=== PATIENT | female | born 1970 | race Caucasian/White ===

== ENCOUNTER → 2016-07-06 | Outpatient (CLI) | payer OTHER ==
[~2016-07-06] MED LIST: CITA20TA9 PO
[2016-07-15 18:18] LABS: HERPES SIMPLEX CULT SOURCE OTHER-LEFT EYE; HERPES SIMPLEX VIRUS CULT NOT ISOLATED (NOT ISOLATED); V-ZOSTER CULT NOT ISOLATED
== END | disposition home or self-care (01) ==
LOC: C.LABSPEC 09:49
PROVIDERS: ATTEND Ophthalmology
DX: B00.9 Herpesviral infection, unspecified (principal)

== ENCOUNTER → 2017-03-29 | Outpatient (CLI) | payer OTHER, BC ==
[~2017-03-29] MED LIST changes: +NORE0.352 PO; +PRD/1 PO
--- NOTE | 2017-03-29 08:58 | DIAGNOSTIC IMAGING REPORT ---
L LOWER EXT JOINT WITHOUT CLINICAL HISTORY: 46 years-old Female presenting with PERSISTENT PAIN S/P WORK INJURY TO LT ANKLE, lateral left ankle pain after injury in December, tender to palpation. TECHNIQUE: Multisequence, multiplanar MR imaging of the left ankle was performed without the use of intravenous contrast. IV contrast: None. COMPARISON: Plain radiographs of the left ankle from 01/22/2017. FINDINGS: Localizer images: Unremarkable. No bony edema. Mild diffuse articular cartilage thinning suggested at the ankle mortise without evidence of focal injury. Anterior, posterior, and peroneal tendons intact. Trace fluid within the tendon sheaths of the tibialis posterior and tibialis anterior. Posterior inferior tibiofibular ligament intact. Increased signal intensity and thickening of the anterior inferior tibiofibular ligament. Anterior and posterior talofibular ligaments intact. Calcaneofibular ligament intact. Deltoid ligament intact. Superficial edema noted at the origin of the medial band of the plantar fascia, however, the fascia remains intact and normal in signal intensity without evidence of thickening. No infiltration of the sinus tarsi. Normal appearance of the tarsal tunnel. Small ankle joint effusion. Trace fluid at the insertion of the Achilles tendon, without evidence of tendon thickening or significant infiltration of Dimitry fat pad. IMPRESSION: 1. Concern for injury of the anterior inferior tibiofibular ligament. 2. Small joint effusion. 3. Trace fluid at the insertion of the Achilles tendon without convincing evidence of retrocalcaneal bursitis or Achilles tendinosis. 4. Trace superficial edema at the medial band of plantar fascia of the fascia remains intact and normal in signal intensity. Electronically signed by: Maurilio Camarillo M.D. 03/29/2017 8:57 AM Dictated Date/Time: 03/29/2017 8:43 AM
== END | disposition home or self-care (01) ==
LOC: C.MRI 07:47
PROVIDERS: ATTEND Nurse Practitioner Family
DX: S99.912A Unspecified injury of left ankle, initial encounter (principal); R93.7 Abnormal findings on diagnostic imaging of other parts of musculoskeletal system; X58.XXXA Exposure to other specified factors, initial encounter; Y99.0 Civilian activity done for income or pay

== ENCOUNTER 2020-07-27 11:27 | Observation (INO) ==
[2020-07-27 11:49] LABS: Basophils # (auto) 0.02 K/uL (0-0.2); Basophils % (auto) 0.2 %; Eosinophils # (auto) 0.07 K/uL (0-0.5); Eosinophils % (auto) 0.7 %; Hematocrit (blood only) 44.6 % (37-47); Hemoglobin 15.2 g/dL (12.0-16.0); Immature Granulocytes # (auto) 0.03 K/uL (0.00-0.02); Immature Granulocytes % (auto) 0.3 %; Lymphocytes # (auto) 3.24 K/uL (1.2-3.4); Lymphocytes % (auto) 30.2 %; Mean Corpuscular Hemoglobin 31.3 pg (25-34); Mean Corpuscular Hgb Conc 34.1 g/dL (32-36); Mean Platelet Volume 8.5 fL (7.4-10.4); Monocytes # (auto) 1.09 K/uL (0.11-0.59); Monocytes % (auto) 10.2 %; Neutrophils # (auto) 6.28 K/uL (1.4-6.5); Neutrophils % (auto) 58.4 %; Platelet Count 281 K/uL (130-400); RDW Coefficient of Variation 13.4 % (11.5-14.5); RDW Standard Deviation 44.9 fL (36.4-46.3); Red Blood Count 4.85 M/uL (4.2-5.4); White Blood Count 10.73 K/uL (4.8-10.8)
[2020-07-27 12:01] LABS: INR 0.9 (0.9-1.1); Partial Thromboplastin Time 26.7 Seconds (21.0-31.0); Prothrombin Time 9.6 Seconds (9.0-12.0)
--- NOTE | 2020-07-27 12:15 | XRay Report ---
XR chest 1V portable CLINICAL HISTORY: Chest Pain COMPARISON STUDY: Chest radiograph and chest CT September 24, 2017. FINDINGS: Lung volumes are normal. Lungs are clear. There is no pneumothorax or pleural effusion. Car diac size is normal. Mediastinal contours are normal. There is no evidence for pulmonary edema. IMPRESSION: No acute cardiopulmonary findings. ACT 112: Negative or not required by law. Electronically signed by: Eligio De La Paz M.D. 07/27/2020 12:13 PM
[2020-07-27 12:17] LABS: Alanine Aminotransferase 28 U/L (12-78); Aspartate Aminotransferase 26 U/L (15-37); BUN Creatinine Ratio 16.1 (10-20); Blood Urea Nitrogen 13 mg/dl (7-18); Calcium 9.5 mg/dl (8.5-10.1); Carbon Dioxide 28 mmol/L (21-32); Chloride 108 mmol/L (98-107); Creatinine Clr Calc Pharmacy 97.9 ml/min; Est GFR (African American) 102.7; Est GFR (Non-African American) 88.6; Glucose 71 mg/dl (70-99); Potassium 3.9 mmol/L (3.5-5.1); Sodium 140 mmol/L (136-145)
[2020-07-27 12:22] LABS: Alkaline Phosphatase 126 U/L (45-117); Bilirubin,Total 0.8 mg/dl (0.2-1); Globulin 4.1 gm/dl (2.5-4.0); Total Protein 8.1 gm/dl (6.4-8.2); Troponin I < 0.015 ng/ml (0-0.045)
[2020-07-27] MEDS ORDERED: NITROGLYCERIN SL 0.4 MG/TAB TAB SL STA (13:12)
[2020-07-27 13:22] LABS: D Dimer 340 ug/L FEU (0-500)
[2020-07-27] MEDS ORDERED: MoRPHine SULFATE 4 MG/ML 1 ML CARP\\VIAL IV STA (14:17)
--- NOTE | 2020-07-27 15:28 | Emergency Department Note ---
Impression & Plan Chest pain ED Provider Note INFORMANT: Patient ED PROVIDER(S): uJan Guthrie MD CHIEF COMPLAINT: Chest pain PLAN: Disposition: Admitted Condition: Good Outpatient prescription management: none Referral: None MEDICAL DECISION MAKING: Patient presented to emerge department complaining of chest pain. She did have some change with nitroglycerin. ECGs did not reveal any acute change. Repeat ECG with change in her pain did not reveal any obvious ischemic change either. Her D-dimer and troponin were negative. Chemistry panel was unremarkable. LFTs and lipase were negative. The patient had a negative chest x-ray. She had pain radiating into the left arm. She was given a dose of IV morphine. I discussed treatment in the hospital for a cardiac work-up. Patient was in agreement. Consultation was made with [facility], Dr. Iniguez. Triage Nursing notes reviewed and agree them. Vital Signs: reviewed and remarkable for no significant abnormalities Differential diagnosis: Cardiac ischemia, aortic dissection, pulmonary embolism, pneumothorax, pneumonia, pericarditis, myocarditis, esophageal rupture, GERD, cholecystitis, pancreatitis, musculoskeletal, as well as other pathologies. Diagnostics interpreted by me: ECG #1: Rate: 78 Rhythm:Normal sinus [place]:Normal QRS:Normal ST segements:No elevation or depression Other:No PACs or PVCs ECG #2: Rate: 80 Rhythm:Normal sinus [place]:Normal QRS:Normal ST segements:No elevation or depression Other:No PACs or PVCs Cardiac Monitoring:Cardiac monitoring ordered by me: The patient was placed on continuous cardiac monitoring and observed. It revealed a normal sinus rhythm at 83 beats per minute without ectopy or evidence of dysrhythmia. Imaging studies: Chest x-ray. Findings: A chest x-ray was performed and revealed no pneumothorax, effusion, infiltrate, pulmonary edema, free air under the diaphragm, or wide mediastinum. Impression: No acute disease. HPI: The patient is a 49 year old female who presents to the Emergency Room with complaints of chest pain. This started about 1030 and is radiating to her neck and jaw. She also notes some radiation to her arms. The patient also notes the following associated symptoms, none. The patient has been given aspirin and 2 nitro for relieving factors. Current pain is rated as 2/10. Pain was a 6 out of 10. Pt denies LOC, headache, fevers, chills, diaphoresis, visual changes, neck pain, breathing difficulties, nausea, vomiting, abdominal pain, back pain, melena, hematochezia, urinary symptoms, numbness, weakness, lymphadenopathy, rash, or other complaints. ROS: See above HPI for pertinent positives & negatives. A total of 10 systems reviewed and were otherwise negative. PAST MEDICAL HISTORY:See Below , patient denies PAST SURGICAL HISTORY:See Below, patient denies FAMILY HISTORY:See Below SOCIAL HISTORY:See Below, non-smoker HOME MEDICATIONS:See Below ALLERGIES:See Below VITALS:See Below PHYSICAL EXAMINATION: GENERAL: Awake, alert, well-appearing, in no distress HENT: Normocephalic, atraumatic. Oropharynx unremarkable. EYES: Normal conjunctiva. Sclera non-icteric. NECK: Inspection normal. Non-tender. Supple. No nuchal rigidity. FROM. No masses. RESPIRATORY: Clear to auscultation. No wheezes. No rales. Normal respiratory effort. CARDIAC: Normal rate. Normal rhythm. No murmurs. No rubs. Extremities warm and well perfused. Pulses equal. No JVD. GI: Soft, non-distended. No tenderness to palpation. No rebound or guarding. No masses. RECTAL: Deferred. MUSCULOSKELETAL: Atraumatic. Chest examination reveals no tenderness. The back is symmetrical on inspection without obvious abnormality. There is no CVA tenderness to palpation. No joint edema. LOWER EXTREMITIES: Calves are equal size bilaterally and non-tender. No edema. No discoloration. NEURO: Normal sensorium. No sensory or motor deficits noted. SKIN: No rash or jaundice noted. Juan Guthrie MD Past Med/Surg History Social History Smoking Status: Never smoker Feels Safe at Home: Yes Allergies Allergies Allergy/AdvReac Type Severity Reaction Status Date / Time apple Allergy Severe throat Verified 11/03/13 13:01 swelling watermelon Allergy Severe throat Verified 11/03/13 13:01 swelling Cantaloupe Allergy Severe throat Uncoded 11/03/13 13:01 swelling IVIG Allergy Unknown migraine Uncoded 09/24/17 21:41 headache and rash Home Meds Home Medications Medication Instructions Recorded Confirmed CITALOPRAM HYDROBROMIDE (CELEXA) 20 mg PO DAILY #0 tab 12/06/13 NORETHINDRONE (CONTRACEPTIVE) 0.35 mg PO DAILY #0 09/24/17 (GERMAN-BE) Prednisone (PREDNISONE) 0.5 mg PO DAILY #0 tab 09/24/17 Results & Data (ED) Vital Signs Vital Signs - 24 hr 07/27/20 11:31 07/27/20 11:33 07/27/20 11:34 Temperature 37.1 C Temperature Source Oral Pulse Rate 81 86 86 Pulse Rate from SpO2 Sensor 84 81 Respiratory Rate 19 22 20 Respiratory Effort / Characteristics Non-Labored Spontaneous Respiratory Depth Normal Blood Pressure 141/91 H 141/91 H Blood Pressure Mean 107 107 Pulse Oximetry 97 96 97 Oxygen Delivery Method Room Air Sepsis Recent Fever Within 48 Hours No Sepsis New/Unexplained Change in Mental Status N/A Sepsis Action Taken by Nursing No Action Required 07/27/20 12:30 07/27/20 13:00 07/27/20 13:30 Temperature Temperature Source Pulse Rate 82 75 76 Pulse Rate from SpO2 Sensor 82 75 76 Respiratory Rate 18 18 18 Respiratory Effort / Characteristics Respiratory Depth Blood Pressure 133/94 135/86 138/87 Blood Pressure Mean 107 102 104 Pulse Oximetry 97 97 97 Oxygen Delivery Method Sepsis Recent Fever Within 48 Hours Sepsis New/Unexplained Change in Mental Status Sepsis Action Taken by Nursing 07/27/20 13:45 Temperature Temperature Source Pulse Rate 83 Pulse Rate from SpO2 Sensor 81 Respiratory Rate 18 Respiratory Effort / Characteristics Respiratory Depth Blood Pressure 118/82 Blood Pressure Mean 94 Pulse Oximetry 95 Oxygen Delivery Method Sepsis Recent Fever Within 48 Hours Sepsis New/Unexplained Change in Mental Status Sepsis Action Taken by Nursing Laboratory Data Result diagrams: 07/27/20 11:10 07/27/20 11:10 Lab Results 07/27/20 07/27/20 07/27/20 Range/Units 11:10 11:10 11:10 WBC 10.73 (4.8-10.8) K/uL RBC 4.85 (4.2-5.4) M/uL Hgb 15.2 (12.0-16.0) g/dL Hct 44.6 (37-47) % MCV 92.0 (80-100) fL MCH 31.3 (25-34) pg MCHC 34.1 (32-36) g/dL RDW Std Deviation 44.9 (36.4-46.3) fL RDW Coeff of [place] 13.4 (11.5-14.5) % Plt Count 281 (130-400) K/uL MPV 8.5 (7.4-10.4) fL Immature Gran % (Auto) 0.3 % Neut % (Auto) 58.4 % Lymph % (Auto) 30.2 % [place] % (Auto) 10.2 % Eos % (Auto) 0.7 % Baso % (Auto) 0.2 % Neut # (Auto) 6.28 (1.4-6.5) K/uL Lymph # (Auto) 3.24 (1.2-3.4) K/uL [place] # (Auto) 1.09 H (0.11-0.59) K/uL Eos # (Auto) 0.07 (0-0.5) K/uL Baso # (Auto) 0.02 (0-0.2) K/uL Immature Gran # (Auto) 0.03 H (0.00-0.02) K/uL PT 9.6 (9.0-12.0) Seconds INR 0.9 (0.9-1.1) APTT 26.7 (21.0-31.0) Seconds PTT Ratio 1.0 D-Dimer 340 (0-500) ug/L FEU Sodium 140 (136-145) mmol/L Potassium 3.9 (3.5-5.1) mmol/L Chloride 108 H (98-107) mmol/L Carbon Dioxide 28 (21-32) mmol/L Anion Gap 4.0 (3-11) BUN 13 (7-18) mg/dl Creatinine 0.78 (0.6-1.2) mg/dl Est Cr Clr Drug Dosing 97.9 ml/min Est GFR ( Amer) 102.7 Est GFR (Non-Af Amer) 88.6 BUN/Creatinine Ratio 16.1 (10-20) Glucose 71 (70-99) mg/dl Calcium 9.5 (8.5-10.1) mg/dl Total Bilirubin 0.8 (0.2-1) mg/dl AST 26 (15-37) U/L ALT 28 (12-78) U/L Alkaline Phosphatase 126 H (45-117) U/L Troponin I < 0.015 (0-0.045) ng/ml Total Protein 8.1 (6.4-8.2) gm/dl Albumin 4.0 (3.4-5.0) gm/dl Globulin 4.1 H (2.5-4.0) gm/dl Albumin/Globulin Ratio 1.0 (0.9-2) Administered Medications Discontinued Medications Morphine Sulfate (Morphine Sulfate 4 Mg/Ml 1 Ml Carp\Vial) 4 mg IV NOW STA Stop: 07/27/20 14:18 Last Admin: 07/27/20 15:02 Dose: 4 mg Documented by: [id number] Nitroglycerin (Nitroglycerin Sl 0.4 Mg/Tab Tab) 0.4 mg SL NOW STA Stop: 07/27/20 13:13 Last Admin: 07/27/20 13:40 Dose: 0.4 mg Documented by: [id number] Imaging Data Radiologist's Impression: Chest X-Ray 07/27/20 11:41 XR chest 1V portable CLINICAL HISTORY: Chest Pain COMPARISON STUDY: Chest radiograph and chest CT September 24, 2017. FINDINGS: Lung volumes are normal. Lungs are clear. There is no pneumothorax or pleural effusion. Cardiac size is normal. Mediastinal contours are normal. There is no evidence for pulmonary edema. IMPRESSION: No acute cardiopulmonary findings. ACT 112: Negative or not required by law. Electronically signed by: Eligio De La Paz M.D. 07/27/2020 12:13 PM Discharge Plan Visit Data Chief Complaint: Chest Pain ED Provider: Juan Guthrie Discharge Problem: Chest pain Forms Stand Alone Forms: My [facility]
--- NOTE | 2020-07-27 15:32 | History & Physical Report ---
Date of Service July 27, 2020 Assessment & Plan (1) Chest pain: - Admit to tele for observation for r/o - Trend cardiac biomarkers, initial set was negative - EKG reviewed as above - Check 2 D echo - If negative enzymes and chest pain free can consider a stress test tomorrow morning. - Lipid panel, A1C, and TSH for completeness - Continue asa 81 mg daily, start metoprolol 12.5 mg PO with first dose now then every morning, atorvastatin 10 mg daily - Nitropaste 1 in now, BP elevated at 150-170 systolic while at bedside - Cardiology consulted - Pt history/risk factors may warrant cardiac catheterization. Pt has seen Dr. Clarke in 2018, but at that time chest pain was rule as musculoskeletal. - HEART score of 4, moderate, risk of MACE is 12-16.6% (2) CIDP (chronic inflammatory demyelinating polyneuropathy): -History of such, on chronic prednisone 5 mg daily, continue -Follows with neurology as an outpatient routinely (3) Immunosuppression due to chronic steroid use: -May continue prednisone 5 mg daily as above (4) Anxiety and depression: - Cont citalopram 40 mg HS - Will order lorazepam 0.5 mg PO TID prn - pt appears to be more anxious here in the ER. (5) DVT prophylaxis: - teds, heparin subq CODE: Full code Dispo: From home, likely to remain in the hospital x 1-2 days History of Present Illness Primary Care Provider: Roosevelt Alcala MD This is a 49 yo F with PMHx of chronic inflammatory demyelinating polyneuropathy, on chronic immunosuppression, depression with anxiety, who presents with the acute onset of chest pain which started at 1030 this morning. 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 This then progressed into a chest heaviness and pressure sensation, radiating up into both sides of her neck and jaw. At that point she called medical personnel at her work who then contacted 911 and EMS brought her to the hospital. She was given 2 nitroglycerin sprays en route as well as full dose aspirin. She did not seem to have significant improvement in her chest pain at that point. Here in the ER patient EKG was reviewed without acute ST wave changes or signs of ischemia, negative troponin. She had worsening of chest pain which then radiated down into the left arm with associated numbness while in the ER, and was given dose of morphine along with a nitroglycerine tablet, which did improve her pain slightly. She still has some chest pain during my visit. Denies lightheadedness or dizziness, no nausea or vomiting or headache. Of note, the patient has a history of chest pain in 2018. At that time she was noted to have been lifting heavy boxes, and doing large amounts of physical activity. It was determined that this was musculoskeletal chest pain and not cardiogenic. She had followed up with Dr. Clarke, cardiology, as outpatient. This pain described above is not like previous musculoskeletal pain in nature. Family history: Paternal aunt with CAD and triple bypass at age 60, at age 80 from other causes Social history: No history of tobacco use or smoking No alcohol use Allergies Allergy/AdvReac Type Severity Reaction Status Date / Time apple Allergy Severe throat Verified 07/27/20 15:32 swelling watermelon Allergy Severe throat Verified 07/27/20 15:32 swelling Cantaloupe Allergy Severe throat Uncoded 07/27/20 15:32 swelling IVIG Allergy Unknown migraine Uncoded 07/27/20 15:32 headache and rash Home Medications Medication Instructions Recorded Confirmed Type Otc Allergy Tab 1 tab PO DAILY 07/27/20 07/27/20 History citalopram 40 mg PO HS 07/27/20 07/27/20 History prednisone 5 mg PO HS 07/27/20 07/27/20 History atorvastatin 10 mg PO QAM #30 tab 07/29/20 Rx famotidine [Pepcid AC] 10 mg PO BID #0 tab 07/29/20 07/27/20 Rx Past Med/Surg History Social History Smoking Status: Never smoker Second Hand Exposure: No; Hx Alcohol Use: Yes Alcohol type: beer Hx Substance Use: No Preferred Language: Cuban Communication Ability: Effective Pharmacy Resource Tech Required: No Beliefs That Will Affect Care: None Current Living Situation: Spouse Feels Safe at Home: Yes Assistive Devices: None Review of Systems Review of Systems: Constitutional: No fever, sweats or chills Eyes: No diplopia, no worsening or blurred vision ENT: normal hearing, no trouble swallowing Respiratory: No cough, sputum, dyspnea at rest or on exertion Cardiovascular: + Chest pain as per HPI, + heaviness, +pressure, denies palpitations Abdomen: No pain, nausea, vomiting, diarrhea or constipation Musculoskeletal: No joint pain, calf pain, swelling Neurologic: No weakness, numbness/tingling, or balance problems Psychiatric: No anxiety or depression Skin: No rash or itch Physical Exam Physical Exam: General: awake, alert, no apparent distress, obese with BMI 34.5 Head: Normocephalic, atraumatic ENT: PERRL, EOMI, no pharyngeal exudate, mucous membranes moist Chest: Clear to auscultation, on room air, no adventitious breath sounds Cardiac: Regular rate and rhythm, no murmur, no JVD, normal peripheral pulses, good capillary refill, chest pain not reproducible on exam Abdominal: NABS x 4 quadrants, soft, nondistended, nontender to palpation, no rebound or guarding Extremities: Normal inspection, no peripheral edema or erythema, calfs nontender to palpation Psych: Normal mood and affect Neuro: AAO x 3, strength intact bilaterally and rated 5/5, no motor deficits, speech is clear, no peripheral sensory deficits Results & Data Results & Data ([facility]) Vital Signs (Past 12 Hours) Vital Signs Temp Pulse Resp BP Pulse Ox 07/27/20 13:45 83 18 118/82 95 07/27/20 13:30 76 18 138/87 97 07/27/20 13:00 75 18 135/86 97 07/27/20 12:30 82 18 133/94 97 07/27/20 11:34 37.1 C 86 20 141/91 H 97 07/27/20 11:33 86 22 96 07/27/20 11:31 81 19 141/91 H 97 Diagnostic Findings Chest X-Ray 07/27/20 11:41 XR chest 1V portable CLINICAL HISTORY: Chest Pain COMPARISON STUDY: Chest radiograph and chest CT September 24, 2017. FINDINGS: Lung volumes are normal. Lungs are clear. There is no pneumothorax or pleural effusion. Cardiac size is normal. Mediastinal contours are normal. There is no evidence for pulmonary edema. IMPRESSION: No acute cardiopulmonary findings. ACT 112: Negative or not required by law. Electronically signed by: Eligio De La Paz M.D. 07/27/2020 12:13 PM ECG Indication: chest pain Rhythm: sinus rhythm Findings: no ST depression, no ST elevation and no acute ischemic change Additional Comments: 27-JUL-2020 11:41:48 [facility]-EDSTAT ROUTINE RETRIEVAL Normal sinus rhythm Normal ECG When compared with ECG of 26-SEP-2017 06:31, No significant change was found 25mm/s 10mm/mV 150Hz 9.0.9 12SL 241 IFEANYI: 10 Referred by: ED Unconfirmed Vent. rate 78 BPM ND interval 138 ms QRS duration 78 ms QT/QTc 380/433 ms Code Status & VTE Plan Code Status Full code- discussed with the patient at bedside Supervising Physician Co-Signing Physician Notes Attending addendum : pt seen and examined , care co-ordinated with Marnie SAAB 49 yo F presented to ER with symptoms of unstable angina , retrosternal chest discomfort with radiation to arm and jaw and neck received SL nitro , chest discomfort mildly improved EKG no ST-T wave changes Physical EXAM : Physical exam: General: No acute distress, alert awake oriented x3 HEENT: PERRLA, EOMI, Heart: Regular S1-S2, no carotid bruit, no JVD, no lower extremity edema Lungs: Clear to auscultate, no wheeze or rales Abdomen: Soft nontender, no organomegaly Extremity: No cyanosis, no deformity, normal strength 5 out of 5 with upper and lower Neuro: No focal neurological deficit normal speech, normal visual field, Motor strength : normal both upper and lower extremity, sensation intact Psych: Alert awake oriented x3, normal affect A/P : chest pain /symptoms suggestive of Unstable angina : ordered for nitro paste ( pt reports of ongoing chest discomfort ) resting ECHO , serial cardiac markers , cardiology eval will order for NPO past midnight possible stress test vs cardiac cath ( if pt continues to have angina symptoms ) Farhana Iniguez MD
[2020-07-27] MEDS ORDERED: NITROGLYCERIN 2% OINTMENT 30GM TUBE EXT SCH (15:55)
[2020-07-27] MEDS ORDERED: ACETAMINOPHEN 325 MG TAB PO PRN (16:05)
[2020-07-27] MEDS ORDERED: LORazepam 0.5 MG TAB PO PRN (16:05)
--- NOTE | 2020-07-27 16:41 | Electrocardiogram Report ---
Test Reason : Blood Pressure : / mmHG Vent. Rate : 078 BPM Atrial Rate : 078 BPM P-R Int : 138 ms QRS Dur : 078 ms QT Int : 380 ms P-R-T Axes : 056 024 013 degrees QTc Int : 433 ms Normal sinus rhythm Normal ECG When compared with ECG of 26-SEP-2017 06:31, No significant change was found Confirmed by Roosevelt Zee ([id number]) on 07/27/2020 4:40:37 PM Referred By: ED Confirmed By:Roosevelt Zee
[2020-07-27] MEDS ORDERED: ACETAMINOPHEN 500 MG TAB ONE (16:49)
[2020-07-27] MEDS: METOPROLOL TARTRATE 25 MG TAB PO SCH (16:53)
[2020-07-27] MEDS: NITROGLYCERIN 2% OINTMENT 30GM TUBE EXT SCH ×2 (16:53→20:57)
[2020-07-27 17:05] LABS: Influenza A virus by PCR Negative (Neg); Influenza B virus by PCR Negative (Neg); RSV by PCR Negative (Neg); SARS CoV2 RNA(COVID-19) InHosp NEGATIVE (Negative)
[2020-07-27] MEDS ORDERED: ONDANSETRON INJ 2 MG/ML 2 ML VIAL IV PRN (19:50)
[2020-07-27] MEDS: CITALOPRAM 40 MG TAB PO SCH (20:56)
[2020-07-27] MEDS: predniSONE 5 MG TAB PO SCH (20:57)
[2020-07-27] MEDS ORDERED: FAMOTIDINE 10 MG TABLET PO SCH (21:00)
[2020-07-27] MEDS: HEPARIN SOD 5,000 UNIT/0.5 ML VIAL SQ SCH (21:00)
[2020-07-28] MEDS: NITROGLYCERIN 2% OINTMENT 30GM TUBE EXT SCH ×4 (04:30→21:32)
[2020-07-28 04:34] LABS: Hematocrit (blood only) 38.7 % (37-47); Hemoglobin 13.1 g/dL (12.0-16.0); Mean Corpuscular Hemoglobin 31.3 pg (25-34); Mean Corpuscular Hgb Conc 33.9 g/dL (32-36); Mean Corpuscular Volume 92.6 fL (80-100); Mean Platelet Volume 8.3 fL (7.4-10.4); Platelet Count 265 K/uL (130-400); RDW Coefficient of Variation 13.6 % (11.5-14.5); RDW Standard Deviation 45.9 fL (36.4-46.3); Red Blood Count 4.18 M/uL (4.2-5.4); White Blood Count 7.09 K/uL (4.8-10.8)
[2020-07-28 04:53] LABS: Alanine Aminotransferase 23 U/L (12-78); Aspartate Aminotransferase 17 U/L (15-37); BUN Creatinine Ratio 20.1 (10-20); Blood Urea Nitrogen 14 mg/dl (7-18); Calcium 8.1 mg/dl (8.5-10.1); Carbon Dioxide 30 mmol/L (21-32); Chloride 111 mmol/L (98-107); Creatinine Clr Calc Pharmacy 106.1 ml/min; Est GFR (African American) 117.1; Glucose 93 mg/dl (70-99); Magnesium 2.4 mg/dl (1.8-2.4); Potassium 4.6 mmol/L (3.5-5.1); Sodium 142 mmol/L (136-145)
[2020-07-28 05:04] LABS: Albumin Globulin Ratio 0.9 (0.9-2); Alkaline Phosphatase 100 U/L (45-117); Bilirubin,Total 0.8 mg/dl (0.2-1); Chol HDL Ratio 5; Cholesterol 215 mg/dl (0-200); Globulin 3.3 gm/dl (2.5-4.0); HDL Cholesterol 40 mg/dl; LDL Cholesterol Calculated 145 mg/dl; Thyroid Stimulating Hormone 0.531 uIu/ml (0.300-4.500); Total Protein 6.3 gm/dl (6.4-8.2); Triglycerides 149 mg/dl (0-150); Troponin I < 0.015 ng/ml (0-0.045); VLDL Cholesterol 30 mg/dl
[2020-07-28 05:40] LABS: Estimated Average Glucose 108 mg/dl; Hemoglobin A1C 5.4 % (4.5-5.6)
[2020-07-28] MEDS: ACETAMINOPHEN 500 MG TAB PO PRN ×3 (07:20→19:48)
[2020-07-28] MEDS: HEPARIN SOD 5,000 UNIT/0.5 ML VIAL SQ SCH ×2 (08:18→19:49)
[2020-07-28] MEDS: METOPROLOL TARTRATE 25 MG TAB PO SCH (08:18)
[2020-07-28] MEDS ORDERED: ASPIRIN 81 MG ECTAB PO SCH (09:00)
[2020-07-28] MEDS ORDERED: ATORVASTATIN 10 MG TAB PO SCH (09:00)
[2020-07-28] MEDS ORDERED: SODIUM CHLORIDE 0.9% 1000ML 1,000 ML IV SCH (09:45)
--- NOTE | 2020-07-28 10:32 | Cardiology Consultation ---
Date of Consultation July 28, 2020 Assessment & Plan (1) Chest pain: Serial EKG tracings and cardiac enzymes have been within normal limits. A D- dimer screen was negative. Patient does have a history of anxiety, but she notes that she did not feel stressed. She mowed her grass over the weekend and did not have symptoms at that time. She is very concerned with regards to her symptoms and her strong family history of heart disease. She did have a previous admission for chest discomfort in 2018. She underwent an exercise stress echocardiogram at that time completing 9 minutes on a David protocol. She states however that the symptoms that prompted her presentation yesterday are different than those for which she was assessed in 2018. She has ongoing mild vague chest discomfort. Given the description of her symptoms and her family history, I think the most prudent course of action is to proceed with invasive coronary angiography to definitively rule in or exclude the presence of obstructive coronary heart disease. Patient was agreeable to this approach. Resting echocardiogram has been ordered and is pending. Agree with current medications including aspirin, topical nitroglycerin, metoprolol tartrate 12.5 mg, atorvastatin 10 mg daily. Keep patient n.p.o. for now, to be reassessed by Dr. James for tentative cardiac catheterization later today. History of Present Illness Attending Physician: Sai Cruz MD History of Present Illness Danette Bose is a 49 year old female seen in cardiology consultation per the request of Lupe Cote PA-C of the [facility] service for the evaluation of chest discomfort. Patient states she was in her normal state of good health early yesterday am. 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 She describes the chest sensation of a pressure and gestures with her hands denoting a bandlike chest pressure across the top of her chest. She received nitroglycerin prehospital and since admission, with partial palliation of the discomfort. She still however notes some mild residual discomfort. EKG x2 yesterday revealed sinus rhythm without significant ST depression. Troponin I has been negative x3 thus far. PAST MEDICAL HISTORY chronic inflammatory demyelinating polyneuropathy, depression, and anxiety. She is on chronic prednisone therapy. A SARS-CoV-2 PCR screen was negative as obtained yesterday. FAMILY HISTORY: Mother is alive at the age of 75 with history of heart stents placed when she was in her 50s Father is alive the age of 78, no history of heart disease No history of heart disease in her siblings She has an aunt who underwent CABG in her 60s Allergies Allergy/AdvReac Type Severity Reaction Status Date / Time apple Allergy Severe throat Verified 07/27/20 15:32 swelling watermelon Allergy Severe throat Verified 07/27/20 15:32 swelling Cantaloupe Allergy Severe throat Uncoded 07/27/20 15:32 swelling IVIG Allergy Unknown migraine Uncoded 07/27/20 15:32 headache and rash Home Medications Medication Instructions Recorded Confirmed Type Otc Allergy Tab 1 tab PO DAILY 07/27/20 07/27/20 History citalopram 40 mg PO HS 07/27/20 07/27/20 History famotidine [Pepcid AC] 10 mg PO HS 07/27/20 07/27/20 History prednisone 5 mg PO HS 07/27/20 07/27/20 History Patient History Social History Smoking Status: Never smoker Second Hand Exposure: No; Do You Dip or Chew Tobacco: No; Tobacco Cessation Education Requested by Patient: No Hx Alcohol Use: Yes Alcohol type: beer Hx Substance Use: No Preferred Language: Gibraltarian Communication Ability: Effective Senior Coldfusion Developer Required: No Beliefs That Will Affect Care: None Current Living Situation: Spouse Other Information That Helps Us Care for You: No Feels Safe at Home: Yes Safety Concerns: Feels Safe At This Time Assistive Devices: None Review of Systems Review of Systems: All systems reviewed & are unremarkable except as noted in HPI & below Physical Exam Physical Exam: Temp Pulse Resp BP Pulse Ox 36.7 C 66 20 133/76 97 07/28/20 07:54 07/28/20 07:54 07/28/20 07:54 07/28/20 07:54 07/28/20 07:54 Constitutional: WD/WN, vitals as above Respiratory: normal respiratory effort, lungs clear to auscultation Cardiovascular: RRR, no murmur, no edema Gastrointestinal (Abdomen): normal bowel sounds, soft, nontender, no hepatosplenomegaly Neurologic: PERRL, EOMI, accommodation nl, no face palsy, no dysarthria Results & Data ([facility]) Vital Signs (Past 12 Hours) Vital Signs Temp Pulse Pulse Resp BP Pulse Ox Pulse Ox 07/28/20 07:54 36.7 C 66 20 133/76 97 07/28/20 04:22 36.9 C 77 16 111/69 96 07/28/20 00:00 95 07/27/20 23:59 82 07/27/20 23:39 36.6 C 70 16 95/59 L 97 Laboratory Results Cardiac Enzymes 07/27/20 07/27/20 07/28/20 Range/Units 11:10 20:08 04:17 AST 26 17 (15-37) U/L Troponin I < 0.015 < 0.015 < 0.015 (0-0.045) ng/ml Coagulation 07/27/20 Range/Units 11:10 PT 9.6 (9.0-12.0) Seconds APTT 26.7 (21.0-31.0) Seconds Lipids 07/28/20 Range/Units 04:17 Triglycerides 149 (0-150) mg/dl Cholesterol 215 H (0-200) mg/dl HDL Cholesterol 40 mg/dl Cholesterol/HDL Ratio 5 CBC 07/27/20 07/28/20 Range/Units 11:10 04:17 WBC 10.73 7.09 (4.8-10.8) K/uL RBC 4.85 4.18 L (4.2-5.4) M/uL Hgb 15.2 13.1 (12.0-16.0) g/dL Hct 44.6 38.7 (37-47) % Plt Count 281 265 (130-400) K/uL Neut # (Auto) 6.28 (1.4-6.5) K/uL Lymph # (Auto) 3.24 (1.2-3.4) K/uL Caroline # (Auto) 1.09 H (0.11-0.59) K/uL Eos # (Auto) 0.07 (0-0.5) K/uL Baso # (Auto) 0.02 (0-0.2) K/uL Comprehensive Metabolic Panel 07/27/20 07/28/20 Range/Units 11:10 04:17 Sodium 140 142 (136-145) mmol/L Potassium 3.9 4.6 D (3.5-5.1) mmol/L Chloride 108 H 111 H (98-107) mmol/L Carbon Dioxide 28 30 (21-32) mmol/L BUN 13 14 (7-18) mg/dl Creatinine 0.78 0.70 (0.6-1.2) mg/dl Glucose 71 93 (70-99) mg/dl Calcium 9.5 8.1 L (8.5-10.1) mg/dl AST 26 17 (15-37) U/L ALT 28 23 (12-78) U/L Alkaline Phosphatase 126 H 100 (45-117) U/L Total Protein 8.1 6.3 L D (6.4-8.2) gm/dl Albumin 4.0 3.0 L (3.4-5.0) gm/dl Intake and Output 07/27/20 07/28/20 07/28/20 22:59 06:59 14:59 Intake Total 440 / 440 0 / 440 Balance 440 / 440 0 / 440 Intake: Oral 440 / 440 0 / 440 Other: Weight 89.3 kg 89.3 kg Weight Measurement Method Standing Scale Standing Scale
--- NOTE | 2020-07-28 11:27 | Electrocardiogram Report ---
Test Reason : Blood Pressure : / mmHG Vent. Rate : 080 BPM Atrial Rate : 080 BPM P-R Int : 142 ms QRS Dur : 078 ms QT Int : 392 ms P-R-T Axes : 061 031 012 degrees QTc Int : 452 ms Normal sinus rhythm Normal ECG When compared with ECG of 27-JUL-2020 11:41, No significant change was found Confirmed by Jeyson Martino ([id number]) on 07/28/2020 11:27:21 AM Referred By: REFERRED SELF Confirmed By:Jeyson Martino
[2020-07-28] MEDS ORDERED: niCARdipine HCL INJ 2.5 MG/ML 10 ML AMP ONE (12:05)
[2020-07-28] MEDS ORDERED: HEPARIN (PORCINE) 1000 UNIT/ML 10 ML (CATH LAB USE ONLY) ONE (12:05)
[2020-07-28] MEDS ORDERED: MIDAZOLAM HCL 1 MG/ML 2ML VIAL ONE (12:06)
[2020-07-28] MEDS ORDERED: NITROGLYCERIN/D5W 100MCG/ML 20ML SYR ONE (12:06)
[2020-07-28] MEDS ORDERED: fentaNYL citrate 100 MCG/2 ML VIAL ONE (12:06)
--- NOTE | 2020-07-28 13:41 | Cardiac Catheterization ---
Date of Service July 28, 2020 Cardiac Cath Report Cardiac Cath Report Procedure: 1. Coronary angiography 2. Left heart catheterization History: This is a 49-year-old female admitted with angina and referred for cardiac catheterization. Procedure summary: After informed consent was obtained the patient was taken to the cardiac catheterization lab where she was prepped and draped in the usual manner for a right transradial approach. Unfortunately, after accessing the radial artery the guidewire would not advance and therefore this approach was abandoned and a right femoral approach utilized. Preformed 5 Belgian diagnostic catheters were utilized for the coronary angiograms. Following the procedure the patient was returned to her room in stable condition. ACC data: Start time 12:53 PM End time 1:23 PM Opening aortic pressure 122/89 Left ventricular pressure 136/14 Closing aortic pressure 124/92 Sedation 1 mg intravenous Versed IV fluid 70 cc normal saline Contrast 50 cc Visipaque Fluoroscopy time 3.7 minutes Radiation 821 mGy DAP 61.68Gy/cm Right dominant system AUC score 6 Coronary angiography: Selective injections of the left coronary artery revealed the left main trunk to be widely patent. The left circumflex artery consist of a medium sized first and a small second marginal branch. The left circumflex artery is widely patent. The LAD extends to the apex of the heart. LAD gives off a single large first diagonal branch. The LAD system is widely patent. Injections into the right coronary artery reveal it to be dominant. Right coronary artery is widely patent. Summary: Widely patent coronary anatomy Recommendations: Continued risk factor modification.
[2020-07-28] MEDS: FAMOTIDINE 10 MG TABLET PO SCH ×2 (15:12→19:49)
--- NOTE | 2020-07-28 16:17 | Hospitalist Progress Note ---
Date of Service July 28, 2020 Assessment & Plan (1) Chest pain: Non Cardiac Chest Pain ACS Ruled out S/P Cardiac Cath: Widely patent coronary anatomy ECHO: No regional wall motion abnormality Cardiac Enzymes: Negative Appreciate Cardiology Input Will Increase Famotidine to BID given chronic Prednisone use (2) CIDP (chronic inflammatory demyelinating polyneuropathy): On chronic prednisone 5 mg daily Follows with neurology as an outpatient (3) Immunosuppression due to chronic steroid use: (4) Anxiety and depression: Continue citalopram 40 mg HS (5) DVT prophylaxis: Heparin SQ CODE STATUS: Full code DISPOSITION Plan to discharge home today Admission and Anticipated Discharge Date Admission Date: July 27, 2020 Subjective Patient is seen and examined at bedside States having decreased chest discomfort this morning Had cardiac catheterization earlier today Denies shortness of breath, dizziness, nausea, abdominal pain Offers no other complaints Review of Systems Review of Systems: All systems reviewed & are unremarkable except as noted in HPI & below Physical Exam Physical Exam: Physical Exam: Vitals signs as noted above General Appearance:Moderately built and nourished, no apparent distress Head: normocephalic, Atraumatic Eyes: normal inspection, EOMI Neck: supple, Trachea midline Respiratory/Chest: Normal breath sounds, CTA, No accessory muscle use Cardiovascular: S1, S2, No murmur Abdomen/GI:Soft, Non tender, Bowel sounds present Extremities/Musculoskeletal:normal inspection, no edema Neurologic/Psych:AAOX3, grossly no focal neurological deficits Skin: normal color, warm Results & Data Results & Data ([facility]) Vital Signs (Past 12 Hours) Vital Signs Temp Pulse Resp BP Pulse Ox 07/28/20 14:46 77 138/82 07/28/20 14:16 79 148/83 H 07/28/20 14:01 37 C 69 18 132/80 97 07/28/20 13:44 75 15 128/79 96 07/28/20 13:36 65 15 133/83 96 07/28/20 12:27 75 18 123/78 96 07/28/20 11:56 36.9 C 62 18 122/80 96 07/28/20 07:54 36.7 C 66 20 133/76 97 07/28/20 04:22 36.9 C 77 16 111/69 96 Laboratory Results Short CBC 07/28/20 Range/Units 04:17 WBC 7.09 (4.8-10.8) K/uL Hgb 13.1 (12.0-16.0) g/dL Hct 38.7 (37-47) % Plt Count 265 (130-400) K/uL BMP 07/28/20 04:17 Sodium 142 Potassium 4.6 D Chloride 111 H Carbon Dioxide 30 BUN 14 Creatinine 0.70 Glucose 93 Calcium 8.1 L Cardiac Enzymes 07/27/20 07/28/20 Range/Units 20:08 04:17 Troponin I < 0.015 < 0.015 (0-0.045) ng/ml Liver Function 07/28/20 Range/Units 04:17 Total Bilirubin 0.8 (0.2-1) mg/dl AST 17 (15-37) U/L ALT 23 (12-78) U/L Alkaline Phosphatase 100 (45-117) U/L Albumin 3.0 L (3.4-5.0) gm/dl
[2020-07-28] MEDS: predniSONE 5 MG TAB PO SCH (19:49)
[2020-07-28] MEDS: CITALOPRAM 40 MG TAB PO SCH (19:49)
[2020-07-28] MEDS ORDERED: MoRPHine SULFATE 4 MG/ML 1 ML CARP\\VIAL IV PRN (21:42)
[2020-07-28] MEDS ORDERED: traMADol HCL 50 MG TABLET PO PRN (21:42)
[2020-07-29] MEDS: NITROGLYCERIN 2% OINTMENT 30GM TUBE EXT SCH (04:39)
[2020-07-29 06:27] LABS: Hematocrit (blood only) 39.6 % (37-47); Hemoglobin 13.3 g/dL (12.0-16.0); Mean Corpuscular Hemoglobin 30.9 pg (25-34); Mean Corpuscular Hgb Conc 33.6 g/dL (32-36); Mean Corpuscular Volume 91.9 fL (80-100); Mean Platelet Volume 8.2 fL (7.4-10.4); Platelet Count 223 K/uL (130-400); RDW Coefficient of Variation 13.1 % (11.5-14.5); Red Blood Count 4.31 M/uL (4.2-5.4); White Blood Count 7.78 K/uL (4.8-10.8)
[2020-07-29 06:52] LABS: Albumin Level 3.2 gm/dl (3.4-5.0); Calcium 8.3 mg/dl (8.5-10.1); Creatinine Clr Calc Pharmacy 112.6 ml/min; Est GFR (African American) 119.4
[2020-07-29 06:55] LABS: Globulin 3.2 gm/dl (2.5-4.0); Total Protein 6.4 gm/dl (6.4-8.2)
[2020-07-29] MEDS ORDERED: ATORVASTATIN 10 MG TAB PO SCH (09:15)
[2020-07-29] MEDS: FAMOTIDINE 10 MG TABLET PO SCH (09:22)
--- NOTE | 2020-07-29 10:22 | Cardiology Progress Note ---
Date of Service July 29, 2020 Assessment & Plan (1) Coronary artery disease excluded: Negative cardiac catheterization performed 07/29/2020. Patient has recovered from her radial/femoral access. Blood pressure is well controlled. Question if her chest discomfort may have been anxiety component. There does not seem to be a musculoskeletal component. Given her family history of coronary heart disease and LDL cholesterol level in the 140s, I would recommend discharge on atorvastatin 10 mg daily. No need for aspirin therapy. She can follow-up with her primary care provider with regards to ongoing risk factor management. I have added the discharge instructions for radial and femoral access to her discharge paperwork template. Admission and Anticipated Discharge Date Admission Date: July 27, 2020 Subjective Patient seen in follow-up of chest discomfort. She underwent cardiac catheterization yesterday. Right radial artery access was unsuccessful and then she underwent procedure via the right femoral artery approach. She tolerated the procedure well with findings of angiographically normal coronary arteries. Blood pressures been well controlled. She has ongoing vague left-sided chest discomfort, this is not reproducible on physical exam. As previously noted D- dimer screen was negative. SARS-CoV-2 screen was negative. She is no longer on the telemetry unit. Physical Exam Physical Exam: Temp Pulse Resp BP Pulse Ox 37.3 C 85 18 135/82 97 07/29/20 09:15 07/29/20 09:15 07/29/20 09:15 07/29/20 09:15 07/29/20 09:15 Constitutional: WD/WN, vitals as above Respiratory: normal respiratory effort, lungs clear to auscultation Cardiovascular: RRR, no murmur, no edema Right radial access site clean dry and intact, no hematoma, right femoral access site, no hematoma Gastrointestinal (Abdomen): normal bowel sounds, soft, nontender, no hepatosplenomegaly Neurologic: PERRL, EOMI, accommodation nl, no face palsy, no dysarthria Results & Data ([facility]) Vital Signs (Past 12 Hours) Vital Signs Temp Pulse Resp BP Pulse Ox 07/29/20 09:15 37.3 C 85 18 135/82 97 07/29/20 02:47 36.7 C 69 15 128/76 96 07/28/20 23:11 36.6 C 87 16 130/80 98 Laboratory Results Cardiac Enzymes 07/29/20 Range/Units 06:09 AST 13 L (15-37) U/L CBC 07/29/20 Range/Units 06:09 WBC 7.78 (4.8-10.8) K/uL RBC 4.31 (4.2-5.4) M/uL Hgb 13.3 (12.0-16.0) g/dL Hct 39.6 (37-47) % Plt Count 223 (130-400) K/uL Comprehensive Metabolic Panel 07/29/20 Range/Units 06:09 Sodium 142 (136-145) mmol/L Potassium 4.0 (3.5-5.1) mmol/L Chloride 111 H (98-107) mmol/L Carbon Dioxide 27 (21-32) mmol/L BUN 13 (7-18) mg/dl Creatinine 0.66 (0.6-1.2) mg/dl Glucose 82 (70-99) mg/dl Calcium 8.3 L (8.5-10.1) mg/dl AST 13 L (15-37) U/L ALT 19 (12-78) U/L Alkaline Phosphatase 100 (45-117) U/L Total Protein 6.4 (6.4-8.2) gm/dl Albumin 3.2 L (3.4-5.0) gm/dl Intake and Output 07/28/20 07/29/20 07/29/20 22:59 06:59 14:59 Intake Total 1150.067 / 1150.067 Balance 1150.067 / 1150.067 Intake: IV 795.067 / 795.067 Sodium Chloride 0.9% 1000ML 1, 795.067 / 795.067 000 ml @ 89 mls/hr IV .[id number] [facility] Rx#:[id number] Oral 355 / 355 Other: # Unmeasured Voids 1
[2020-07-29] MEDS: HEPARIN SOD 5,000 UNIT/0.5 ML VIAL SQ SCH (10:50)
--- NOTE | 2020-07-29 13:37 | Hospitalist Progress Note ---
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: -May continue prednisone 5 mg daily as above (4) Anxiety and depression: Continue citalopram 40 mg HS (5) DVT prophylaxis: Heparin SQ CODE STATUS: Full code DISPOSITION home Admission and Anticipated Discharge Date Admission Date: July 27, 2020 Subjective Patient is seen and examined at bedside States feeling well today Offers no complaints Discussed with Cardiology today Denies chest pain, shortness of breath, dizziness, nausea, abdominal pain Review of Systems Review of Systems: All systems reviewed & are unremarkable except as noted in HPI & below Physical Exam Physical Exam: Physical Exam: Vitals signs as noted above General Appearance:Moderately built and nourished, no apparent distress Head: normocephalic, Atraumatic Eyes: normal inspection, EOMI Neck: supple, Trachea midline Respiratory/Chest: Normal breath sounds, CTA, No accessory muscle use Cardiovascular: S1, S2, No murmur Abdomen/GI:Soft, Non tender, Bowel sounds present Extremities/Musculoskeletal:normal inspection, no edema Neurologic/Psych:AAOX3, grossly no focal neurological deficits Skin: normal color, warm Results & Data Results & Data ([facility]) Vital Signs (Past 12 Hours) Vital Signs Temp Pulse Resp BP Pulse Ox 07/29/20 13:20 37.0 C 92 H 18 138/80 97 07/29/20 09:15 37.3 C 85 18 135/82 97 07/29/20 02:47 36.7 C 69 15 128/76 96 Laboratory Results Short CBC 07/29/20 Range/Units 06:09 WBC 7.78 (4.8-10.8) K/uL Hgb 13.3 (12.0-16.0) g/dL Hct 39.6 (37-47) % Plt Count 223 (130-400) K/uL BMP 07/29/20 06:09 Sodium 142 Potassium 4.0 Chloride 111 H Carbon Dioxide 27 BUN 13 Creatinine 0.66 Glucose 82 Calcium 8.3 L Liver Function 07/29/20 Range/Units 06:09 Total Bilirubin 1.0 (0.2-1) mg/dl AST 13 L (15-37) U/L ALT 19 (12-78) U/L Alkaline Phosphatase 100 (45-117) U/L Albumin 3.2 L (3.4-5.0) gm/dl
--- NOTE | 2020-07-29 13:41 | Discharge Summary ---
Date of Service July 29, 2020 Admission HPI Per Admitting Provider This is a 49 yo F with PMHx of chronic inflammatory demyelinating polyneuropathy, on chronic immunosuppression, depression with anxiety, who presents with the acute onset of chest pain which started at 1030 this morning. 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 This then progressed into a chest heaviness and pressure sensation, radiating up into both sides of her neck and jaw. At that point she called medical personnel at her work who then contacted 911 and EMS brought her to the hospital. She was given 2 nitroglycerin sprays en route as well as full dose aspirin. She did not seem to have significant improvement in her chest pain at that point. Here in the ER patient EKG was reviewed without acute ST wave changes or signs of ischemia, negative troponin. She had worsening of chest pain which then radiated down into the left arm with associated numbness while in the ER, and was given dose of morphine along with a nitroglycerine tablet, which did improve her pain slightly. She still has some chest pain during my visit. Denies lightheadedness or dizziness, no nausea or vomiting or headache. Of note, the patient has a history of chest pain in 2018. At that time she was noted to have been lifting heavy boxes, and doing large amounts of physical activity. It was determined that this was musculoskeletal chest pain and not cardiogenic. She had followed up with Dr. Clarke, cardiology, as outpatient. This pain described above is not like previous musculoskeletal pain in nature. Family history: Paternal aunt with CAD and triple bypass at age 60, at age 80 from other causes Social history: No history of tobacco use or smoking No alcohol use Admission Exam Per Admitting Provider Physical Exam Physical Exam: General: awake, alert, no apparent distress, obese with BMI 34.5 Head: Normocephalic, atraumatic ENT: PERRL, EOMI, no pharyngeal exudate, mucous membranes moist Chest: Clear to auscultation, on room air, no adventitious breath sounds Cardiac: Regular rate and rhythm, no murmur, no JVD, normal peripheral pulses, good capillary refill, chest pain not reproducible on exam Abdominal: NABS x 4 quadrants, soft, nondistended, nontender to palpation, no rebound or guarding Extremities: Normal inspection, no peripheral edema or erythema, calfs nontender to palpation Psych: Normal mood and affect Neuro: AAO x 3, strength intact bilaterally and rated 5/5, no motor deficits, speech is clear, no peripheral sensory deficits Principal Diagnosis Chest Pain Discharge Data Allergies Allergy/AdvReac Type Severity Reaction Status Date / Time apple Allergy Severe throat Verified 07/27/20 15:32 swelling watermelon Allergy Severe throat Verified 07/27/20 15:32 swelling Cantaloupe Allergy Severe throat Uncoded 07/27/20 15:32 swelling IVIG Allergy Unknown migraine Uncoded 07/27/20 15:32 headache and rash Consultations 07/27/20 15:34 ED Decision to Admit Stat 07/27/20 19:50 Consult Cardiology Routine Procedures Performed Operation Date: 07/28/20 12:00 Actual Procedures p Cath, Left with Cors and Vent - Mike James, DO s Cineradiography w/Routine Exam - Mike James DO s Placement Art Occlusive Device - Mike James DO CXR: No acute cardiopulmonary findings. Ordered Studies 07/28/20 12:23 CL Cath Imgs for PACS use only Routine Hospital Course (1) Chest pain: Non Cardiac Chest Pain ACS Ruled out S/P Cardiac Cath: Widely patent coronary anatomy ECHO: No regional wall motion abnormality Cardiac Enzymes: Negative Appreciate Cardiology Input Will Increase Famotidine to BID given chronic Prednisone use Added Lipitor 10mg daily as recommended by Cardiology Chest Pain resolved (2) CIDP (chronic inflammatory demyelinating polyneuropathy): On chronic prednisone 5 mg daily Follows with neurology as an outpatient (3) Immunosuppression due to chronic steroid use: -May continue prednisone 5 mg daily as above (4) Anxiety and depression: Continue citalopram 40 mg HS (5) DVT prophylaxis: Heparin SQ CODE STATUS: Full code DISPOSITION home Total Time Total Time Spent Total Time Spent (In Minutes): 31 minutes Discharge Plan Discharge Items Patient Disposition: Home - Self-Care Reason For Visit: CHEST PAIN Discharge Diagnosis: Chest Pain Activity: Per Instructions section Exercise/Sports: Gradually increase as tolerated Non-emergency contact: Primary Care Provider Call non-emergency contact if: you have any medication questions, your symptoms worsen, your pain is not controlled, your pain is concerning for you and you galarza ve a fever Follow-up/Referrals: Roosevelt Alcala MD [Primary Care Provider] - (Date & Time 08/02/2020 11:00 AM Provider Roosevelt Alcala MD Department Family Practice [facility] ) Diet: Heart Healthy Mayte Attending Provider Instructions: ACTIVITY RECOMMENDATIONS: It is common to feel weak and fatigue for a few days. * Do not drive or operate any motorized equipment for the next three days. * Limit stair usage (2 or 3 trips a day only) for the next three days. * Do not lift anything heavier than 10 pounds for the next three days. * Do not engage in vigorous exercise or any sports for the next five days. * You may shower the day after your procedure, but do not immerse the area for three days. Cleanse the site gently with soap and water. SPECIAL CARE INSTRUCTIONS: * You may replace the pressure dressing or band-aid the morning after the procedure. * After your procedure, it is normal to have a small bruise or small lump at the site. Examine your site daily for any change in the bruise or lump, redness, swelling, drainage or numbness. Notify your doctor if any change. BLEEDING: * If there is a small amount of bleeding at the site, lie down and apply firm pressure with a clean cloth for ten minutes. When the bleeding stops, lie quietly keeping the procedure limb straight for six hours. Notify your doctor as soon as possible. * If the bleeding does not stop after ten minutes or if there is a large amount of bleeding or spurting, call 911 immediately. Continue to lie down and hold firm pressure until help arrives. SKIN IRRITATION: * You may experience some redness and/or swelling in the area where radiation was administered. If any skin irritation occurs, please contact your family physician. FOLLOW UP VISIT: Keep any scheduled doctor appointments. Mayte Balloon Pilot Provider Instructions: Follow-up with your primary care physician Dr. Alcala on 08/02/2020 11:00 AM Seek immediate medical attention if your symptoms reoccur or worsen Please take all medications as instructed on discharge list below. Please call if you have any questions or problems. You can reach a [facility] hospitalist on duty at [facility] 24 hours a day by calling [phone] Pending Studies at Discharge: No Stand-Alone Forms: My [facility], Smoking Cessation Medications and DC Order Prescriptions: New atorvastatin 10 mg Tablet 10 mg PO QAM Qty: 30 RF: 1 Continued citalopram 40 mg tablet 40 mg PO HS RF: 0 prednisone 5 mg tablet 5 mg PO HS RF: 0 Otc Allergy Tab 1 tab PO DAILY RF: 0 Changed famotidine [Pepcid AC] 10 mg Tablet 10 mg PO BID Qty: 0 RF: 0 Discharge Orders: Discharge Order (Routine); Ordered 07/29/20 Ordered By: Sai Mcneil/Other Patient Handouts: Understanding the Pain Response Admission Data Admit Date/Time: 07/27/20 15:36 Attending Provider: Sai Cruz Admit Provider: Farhana Iniguez Primary Care Provider: Roosevelt Alcala Other Providers: Farhana Iniguez ; Mike James Other Interventions: Discharge Summary Assessment (RN) Last Done: 07/29/20 13:45
== END 2020-07-29 14:19 | disposition home or self-care (01) ==
LOC: 2S 11:27 → ED 11:27 → SUATTDRO 15:36 → 2S 19:00 → 3W 07-28 19:40